=== PATIENT | female | born 1960 | race Caucasian/White ===

== ENCOUNTER 2016-02-22 08:02 | Day surgery (SDC) | payer OTHER ==
[~2016-02-22] VITALS: Ht 167.6 cm; Wt 62.0 kg
[2016-02-22] MEDS ORDERED: LEVODOPA (08:41)
[2016-02-22 08:43] VITALS: Ht 167.6 cm; Wt 62.0 kg
[2016-02-22 09:23] VITALS: BP 126/57; PULSE 60; RESP 22
[2016-02-22 10:01] VITALS: BP 127/60; PULSE 66; RESP 23
[2016-02-22] MEDS ORDERED: MIDAZOLAM 1 MG/ML 2 ML INJ ONE ×2 (10:06)
[2016-02-22] MEDS ORDERED: FENTAnyl 50 MCG/ML VIAL ONE (10:06)
--- NOTE | 2016-02-22 14:11 | GILP ---
DATE OF PROCEDURE: NAME OF PROCEDURES: Colonoscopy, biopsy, polypectomy and clipping. SURGEON: Christophe Perkins MD PREOPERATIVE DIAGNOSIS: Screening colonoscopy. POSTOPERATIVE DIAGNOSES 1. Colonoscopy all the way to the cecum. 2. Two large sigmoid colon polyps were removed using the snare and electrocautery. 3. Clipping of one of the polypectomy sites was done because of bleeding following polypectomy. 4. Small sigmoid colon polyp was removed using the biopsy forceps. 5. Transverse colon polyp was removed using the biopsy forceps. 6. Internal hemorrhoids. INDICATION FOR THE PROCEDURE: Ms. Carl Laird is a 55-year-old female patient who wa s scheduled for screening colonoscopy. The procedure and possible complications were well explained to the patient. The patient understood and consented to the procedure. DESCRIPTION OF PROCEDURE: Under the influence of fentanyl and Versed, the colonoscope was carefully introduced in the rectum and under direct vision, it was advanced all the way to the cecum. FINDINGS: The patient had 2 large sigmoid colon polyps and they were removed using the snare and el ectrocautery. There was some bleeding at the polypectomy site and clipping of the polypectomy site was done and the bleeding was stopped. The patient had another small sigmoid colon polyp and it was removed using the biopsy forceps. Another small transverse colon polyp was removed using the biops y forceps. The patient was noted to have internal hemorrhoids. She tolerated the procedure very well and there was no complication from the procedure. At the end of the procedure, she was awake with stable vital signs and she was discharged home to the care of h er family. IMPRESSION: 1. Colonoscopy all the way to the cecum. 2. Two large sigmoid colon polyps were removed using the snare and electrocautery. 3. Clipping of one of the polypectomy sites was done because of bleeding following polypectomy. 4. Small sigmoid colon polyp was removed using the biopsy forceps. 5. Transverse colon polyp was removed using the biopsy forceps. 6. Internal hemorrhoids. PLAN: 1. Await histopathology report. 2. If the polyps are benign, followup colonoscopy in 3 years. Dictated By: CHRISTOPHE SHABAZZ/AMINAH Conf#: [id number] DID#: [id number]
== END 2016-02-22 10:14 | disposition home or self-care (01) ==
LOC: GIL 08:02
PROVIDERS: ATTEND Internal Medicine Gastroenterology
DX: Z12.11 Encounter for screening for malignant neoplasm of colon (principal); D12.5 Benign neoplasm of sigmoid colon; D12.3 Benign neoplasm of transverse colon
CPT/HCPCS: 45380; 45385; 88305; J2250; J3010; Z7610

== ENCOUNTER → 2017-10-24 | Outpatient (CLI) | END | disposition home or self-care (01) ==

== ENCOUNTER → 2018-07-04 | Outpatient (CLI) | payer OTHER ==
[~2018-07-04] MED LIST: IOHEXOL 100 ML ONE; LEVODOPA; METOPROLOL 5 MG INJ ONE; NITROGLYCERIN AEROSOL (4.9 GM) ONE; SOD CHLORIDE 0.9% 100 ML ONE
== END | disposition home or self-care (01) ==
LOC: C/S 09:35
PROVIDERS: ATTEND Internal Medicine Interventional Cardiology
DX: R07.9 Chest pain, unspecified (principal)
CPT/HCPCS: 75571; 75574; Q9967; Z7610